=== PATIENT | male | born 1975 | race Caucasian/White ===

== ENCOUNTER 2018-12-24 21:26 | Emergency (ER) | payer MEDICAID, OTHER ==
[~2018-12-24] VITALS: Ht 177.8 cm; Wt 79.8 kg
[2018-12-24 23:15] LABS: Basophils # (auto) 0.1 uL; Eosinophils # (auto) 0 uL; Hemoglobin 16.4 g/dL (13.5-17.5); Monocytes % (auto) 7.6 % (0.0-12.0)
[2018-12-24 23:17] LABS: Basophils % (auto) 0.4 % (0.0-2.0); Eosinophils % (auto) 0.3 % (0.0-7.0); Hematocrit 50.2 % (41.0-53.0); Lymphocytes # (auto) 2.6 uL; Lymphocytes % (auto) 19.1 % (10.0-50.0); Mean Corpuscular Hemoglobin 26.6 pg (28.0-32.0); Mean Corpuscular Hgb Conc. 32.7 g/dL (32.0-36.0); Mean Corpuscular Volume 81.5 fL (80.0-100.0); Monocytes # (auto) 1.1 uL; Neutrophils # (auto) 10.1 uL; Neutrophils % (auto) 72.6 % (37.0-80.0); Platelet Count (auto) 344 10^3/uL (140-450); Red Blood Cells 6.16 10^6/uL (4.5-5.90); Red Cell Distribution Width 15.1 % (11.8-14.3); White Blood Cell 13.9 10^3/uL (4.4-10.8)
[2018-12-24 23:31] LABS: Albumin 4.4 g/dL (3.4-5.0); Anion Gap 8 (5-15); Blood Alcohol < 3.0 mg/dL (0-5); Blood Urea Nitrogen 15 mg/dL (7-18); Calcium 9.4 mg/dL (8.5-10.1); Carbon Dioxide 23 mmol/L (21-32); Chloride 109 mmol/L (98-107); Glucose 100 mg/dL (74-106); Potassium 3.9 mmol/L (3.5-5.1); Sodium 140 mmol/L (136-145)
[2018-12-24 23:35] LABS: Alanine Aminotransferase 52 U/L (16-61); Alkaline Phosphatase 130 U/L (45-117); Aspartate Aminotransferase 16 U/L (15-37); BUN/Creatinine Ratio 16.7; Bilirubin, Total 0.6 mg/dL (0.2-1.0); GFR African American 120 mL/min; GFR Non-African American 99 mL/min; Total Protein 8.1 g/dL (6.4-8.2)
[2018-12-24 23:36] LABS: Salicylate 5.9 mg/dL (2.8-20.0)
[2018-12-25 00:08] LABS: Acetaminophen < 2.0 ug/mL (10-30)
[2018-12-25 01:23] LABS: Alcohol, Urine < 3.0 mg/dL (0-5); Amphetamine Screen, Urine NEGATIVE (NEGATIVE); Barbiturate Scree,Urine NEGATIVE (NEGATIVE); Benzodiazephine Screen, Urine NEGATIVE (NEGATIVE); Cannabinoid Screen, Urine POSITIVE (NEGATIVE); Cocaine Screen, Urine NEGATIVE (NEGATIVE); Opiate Scree,Urine NEGATIVE (NEGATIVE); Phencyclidine Screen, Urine NEGATIVE (NEGATIVE)
[2018-12-25 01:24] LABS: Urine Bacteria NONE SEEN /hpf (None Seen); Urine Blood Negative /uL (Negative); Urine Mucus FEW (None Seen); Urine Specific Gravity 1.028 (1.001-1.035); Urine WBC 2 /hpf (0 - 3)
[2018-12-25 18:30] VITALS: BP 117/86
== END 2018-12-25 18:41 | disposition home or self-care (01) ==
LOC: EDBD 21:26 → ER 21:31
DX: F32.9 Major depressive disorder, single episode, unspecified (principal); F41.9 Anxiety disorder, unspecified; F19.10 Other psychoactive substance abuse, uncomplicated; F17.210 Nicotine dependence, cigarettes, uncomplicated; F12.90 Cannabis use, unspecified, uncomplicated; Z59.0 Homelessness
CPT/HCPCS: 36415; 71046; 80053; 80307; 80320; 80329; 81001; 85025; 93005

== ENCOUNTER 2019-01-20 23:39 | Emergency (ER) | payer OTHER ==
[~2019-01-20] VITALS: Ht 182.9 cm; Wt 70.3 kg
[2019-01-21 01:41] LABS: Basophils # (auto) 0.1 uL; Basophils % (auto) 0.5 % (0.0-2.0); Eosinophils # (auto) 0 uL; Eosinophils % (auto) 0.1 % (0.0-7.0); Hematocrit 44.9 % (41.0-53.0); Hemoglobin 15.2 g/dL (13.5-17.5); Lymphocytes # (auto) 1.2 uL; Lymphocytes % (auto) 7.3 % (10.0-50.0); Mean Corpuscular Hemoglobin 27.7 pg (28.0-32.0); Mean Corpuscular Hgb Conc. 33.7 g/dL (32.0-36.0); Mean Corpuscular Volume 82.2 fL (80.0-100.0); Monocytes # (auto) 1.1 uL; Monocytes % (auto) 6.6 % (0.0-12.0); Neutrophils # (auto) 13.8 uL; Neutrophils % (auto) 85.5 % (37.0-80.0); Platelet Count (auto) 264 10^3/uL (140-450); Red Blood Cells 5.47 10^6/uL (4.5-5.90); Red Cell Distribution Width 14.6 % (11.8-14.3); White Blood Cell 16.2 10^3/uL (4.4-10.8)
[2019-01-21 02:03] LABS: Salicylate 7.2 mg/dL (2.8-20.0)
[2019-01-21 02:09] LABS: Acetaminophen < 2.0 ug/mL (10-30); Anion Gap 13 (5-15); Blood Urea Nitrogen 10 mg/dL (7-18); Calcium 8.7 mg/dL (8.5-10.1); Carbon Dioxide 20 mmol/L (21-32); Chloride 111 mmol/L (98-107); Glucose 116 mg/dL (74-106); Magnesium 2.1 mg/dL (1.6-2.6); Potassium 3.8 mmol/L (3.5-5.1); Sodium 144 mmol/L (136-145)
[2019-01-21 02:12] LABS: Alanine Aminotransferase 26 U/L (16-61); Albumin 4.2 g/dL (3.4-5.0); Aspartate Aminotransferase 13 U/L (15-37); Blood Alcohol < 3.0 mg/dL (0-5); GFR African American 118 mL/min; GFR Non-African American 97 mL/min
[2019-01-21 02:15] LABS: Alkaline Phosphatase 102 U/L (45-117); Bilirubin, Total 1.2 mg/dL (0.2-1.0); Total Protein 7.3 g/dL (6.4-8.2)
[2019-01-21] MEDS ORDERED: SODIUM CHLORIDE 0.9% 1,000 ML IV ONE (06:30)
[2019-01-21 12:03] LABS: Alcohol, Urine < 3.0 mg/dL (0-5); Amphetamine Screen, Urine NEGATIVE (NEGATIVE); Barbiturate Scree,Urine NEGATIVE (NEGATIVE); Benzodiazephine Screen, Urine NEGATIVE (NEGATIVE); Cannabinoid Screen, Urine POSITIVE (NEGATIVE); Cocaine Screen, Urine NEGATIVE (NEGATIVE); Opiate Scree,Urine NEGATIVE (NEGATIVE); Phencyclidine Screen, Urine NEGATIVE (NEGATIVE)
[2019-01-21 12:45] LABS: Urine Bacteria FEW /hpf (None Seen); Urine Blood Negative /uL (Negative); Urine Hyaline Cast MOD /lpf (0 - 2); Urine Mucus FEW (None Seen); Urine WBC 12 /hpf (0 - 3)
[2019-01-22] MEDS ORDERED: LOPERAMIDE HCL 2 MG CAP PO ONE (15:15)
[2019-01-25] MEDS: FLUoxetine HCL 20 MG CAP PO SCH (10:14)
[2019-01-26] MEDS: FLUoxetine HCL 20 MG CAP PO SCH (10:00)
[2019-01-26] MEDS ORDERED: IBUPROFEN 800 MG TAB PO ONE (20:15)
[2019-01-27] MEDS: FLUoxetine HCL 20 MG CAP PO SCH (10:40)
[2019-01-27 19:30] VITALS: BP 118/82
== END 2019-01-28 05:27 | disposition home or self-care (01) ==
LOC: ER 23:39 → EDBD 23:39 → ER 01-28 05:27
DX: R45.851 Suicidal ideations (principal); F41.9 Anxiety disorder, unspecified; F32.9 Major depressive disorder, single episode, unspecified; R11.2 Nausea with vomiting, unspecified; F17.210 Nicotine dependence, cigarettes, uncomplicated; F12.90 Cannabis use, unspecified, uncomplicated; R07.9 Chest pain, unspecified
CPT/HCPCS: 36415; 80053; 80307; 80320; 80329; 81001; 83735; 85025; 93005; 96360; 96361; 99285; J7030